=== PATIENT | female | born 1970 | race Caucasian/White ===

== ENCOUNTER 2016-11-23 12:58 | Emergency (ER) | payer OTHER ==
[~2016-11-23] VITALS: Ht 170.2 cm; Wt 81.6 kg
--- NOTE | 2016-11-23 12:58 | NUR ---
Patient BIBA and taken to bed 06.
[2016-11-23 13:10] VITALS: BP 142/86
--- NOTE | 2016-11-23 13:20 | NUR ---
Dr. Bello evaluating patient at bedside.
--- NOTE | 2016-11-23 13:25 | NUR ---
PATIENT PRESENTS TO ED WITH LEFT FACIAL BRUISING AND SWELLING.ERMD MADE AWARE; DENIES N/V/D; SKIN IS PINK/WARM/DRY; AAOX4 WITH EVEN AND STEADY GAIT; LUNGS CLEAR BL; HR EVEN AND REGULAR; PT DENIES ANY FEVER, CP, SOB, OR COUGH AT THIS TIME; PATIENT STATES PAIN OF 4/10 AT THIS TIME; VSS; PATIENT POSITIONED FOR COMFORT; HOB ELEVATED; BEDRAILS UP X2; BED DOWN. ER MD MADE AWARE OF PT STATUS.
--- NOTE | 2016-11-23 14:09 | NUR ---
Ruthie camarillo in [facility] - 11/23/16 at 1411 by PARAG Patient going to CT via wheelchair per tech.
--- NOTE | 2016-11-23 14:10 | NUR ---
AAO, COOPERATIVE PT TAKEN TO CT VIA WHEEL CHAIR BY LONDON MOULTON
--- NOTE | 2016-11-23 14:26 | NUR ---
Patient [facility].
[2016-11-23] MEDS ORDERED: POTASSIUM CHLORIDE 20% 40 MEQ/15 ML UDC PO ONE (14:35)
[2016-11-23 16:30] VITALS: BP 138/84
--- NOTE | 2016-11-23 16:30 | NUR ---
Patient discharged with v/s stable. Written and verbal after care instructions given and explained. Patient verbalized understanding. Wheel Chair Assisted with to car. All questions addressed prior to discharge. Advised to follow up with PMD.
== END 2016-11-23 16:30 | disposition home or self-care (01) ==
LOC: MED 13:40
DX: S00.83XA Contusion of other part of head, initial encounter (principal); S00.03XA Contusion of scalp, initial encounter; R55 Syncope and collapse; E87.6 Hypokalemia; X58.XXXA Exposure to other specified factors, initial encounter; Y93.89 Activity, other specified; Y92.89 Other specified places as the place of occurrence of the external cause; Y99.8 Other external cause status

== ENCOUNTER 2019-10-04 21:15 | Inpatient (IN) | payer OTHER ==
[~2019-10-04] VITALS: Ht 170.2 cm; Wt 84.8 kg
[2019-10-04 21:15] VITALS: BP 185/111
--- NOTE | 2019-10-04 21:15 | NUR ---
PT BIBA TO ED BED 09
[2019-10-04] MEDS ORDERED: NACL 0.9% 1,000 ML IV ONE ×2 (21:25→22:50)
[2019-10-04] MEDS ORDERED: ALBUTEROL SULFATE/IPRATROPIU 3 ML SOL IH ONE (21:25)
[2019-10-04] MEDS ORDERED: LORazepam 2 MG/ML VIAL IVP ONE (21:30)
--- NOTE | 2019-10-04 21:30 | NUR ---
PT BIBA TO ED FOR EVALUATION OF SEIZURE LIKE ACTIVITY. PER EMS; FAMILY STATED PT CONSUMED HEAVY ALCOHOL LAST NIGHT. PT HAD EPISODE OF SEIZURE LIKE ACTIVITY, EYE OPEN AND FIXED, SHAKING. BLOOD SUGAR 164 ON SCENE. ALSO COMBATIVE EPISODE ON SCENE DENIES PMH. PT AAO X3, GCS 14([id number]), ABLE TO ANSWER QUESTIONS WITH SHORT SENTENCES. ATTEMPTED TO FOLLOW COMMANDS. PUPILS PERRLA 3/3 BRISK. RESPIRATIONS EVEN AND UNLABORED, BL LUNG CLEAR. SKIN WARM/PINK/DRY, +PMSC. ABDOMEN SOFT, NON DISTENDED, ACTIVE BOWEL SOUND X4. C/O N/V. FOOD STAND MANAGER SR, BP ELEVATED. AT BEDSIDE EVALUATING PT. WILL CONTINUE TO MONITOR Addendum: 10/05/19 at 0105 by [facility] SEIZURE PAD APPLIED FOR SEIZURE PRECAUTION
--- NOTE | 2019-10-04 21:47 | NUR ---
UNABLE TO GIVE HHN TREATMENT, PATIENT WAS VOMITING. ADVISED .
[2019-10-04] MEDS ORDERED: ONDANSETRON 4 MG/2 ML VIAL IVP ONE (21:55)
[2019-10-04 21:59] LABS: BASOPHILS # (AUTO) 0.1 K/uL (0.00-0.22); BASOPHILS % (AUTO) 0.8 % (0.0-2.0); EOSINOPHILS # (AUTO) 0.1 K/uL (0-0.4); EOSINOPHILS % (AUTO) 1.2 % (0.0-4.0); HEMATOCRIT 44.7 % (36-48); HEMOGLOBIN 15.3 g/dL (12.0-16.0); LYMPHOCYTES # (AUTO) 1.1 K/uL (2.5-16.5); LYMPHOCYTES % (AUTO) 12.6 % (20.5-51.1); MEAN CORPUSCULAR HEMOGLOBIN 31 pg (27-31); MEAN CORPUSCULAR HGB CONC 34 g/dL (33-37); MEAN CORPUSCULAR VOLUME 90.7 fL (80-94); MONOCYTES # (AUTO) 0.6 K/uL (0.8-1.0); MONOCYTES % (AUTO) 6.8 % (1.7-9.3); NEUTROPHILS # (AUTO) 6.7 K/uL (1.8-7.7); NEUTROPHILS % (AUTO) 78.6 % (42.2-75.2); PLATELET COUNT (AUTO) 198 K/uL (140-450); RED BLOOD CELL COUNT(AUTO) 4.93 MIL/uL (4.20-5.40); WHITE BLOOD COUNT (AUTO) 8.5 K/uL (4.8-10.8)
--- NOTE | 2019-10-04 22:00 | NUR ---
PT DESATURATION O2 82% ON ROOM AIR, PLACED ON O2 2L/M VIA NC, O2 SAT 97%. PT REMAINS GCS 14. VSS, WILL CONTINUE TO MONITOR
[2019-10-04 22:35] LABS: ALBUMIN 4.7 g/dL (3.4-5.0); ANION GAP 20.2 (8-16); ASPARTATE AMINOTRANSFERASE 23 U/L (15-37); CARBON DIOXIDE 20.6 mmol/L (21-32); CHLORIDE 102 mmol/L (98-107); GFR ARICAN-AMERICAN 76 mL/min (>90); GLUCOSE 210 mg/dL (74-106); SALICYLATE 4.3 mg/dL (2.8-20.0); SODIUM SERUM 140 mmol/L (136-145); TOTAL BILIRUBIN 1.5 mg/dL (0.0-1.0); UREA NITROGEN, BLOOD 10 mg/dL (7-18)
[2019-10-04 22:37] LABS: ACETAMINOPHEN < 0.5 ug/ml (10-30); POTASSIUM 2.8 mmol/L (3.5-5.1)
[2019-10-04] MEDS ORDERED: KCL 20 MEQ/WATER INJ PREMIX 200 ML IV ONE (22:50)
[2019-10-04] MEDS ORDERED: POTASSIUM CHLORIDE 20% 40 MEQ/15 ML UDC PO ONE (22:50)
[2019-10-04] MEDS ORDERED: ceFAZolin 1,000 MG VIAL ONE (22:50)
[2019-10-04 23:04] LABS: CKMB RELATIVE INDEX 1.1 (0.0-2.5)
[2019-10-04 23:45] LABS: BARBITURATE, URINE NEG. ng/ml (NEG <=200); BENZODIAZEPINE, URINE NEG. ng/mL (NEG <=200); CANNABINOID, URINE POS. ng/mL (NEG <=50); COCAINE, URINE NEG. ng/mL (NEG <=300); OPIATE, URINE NEG. ng/mL (NEG <=2000); PHENCYCLIDINE SCREEN,URINE NEG. ng/mL (NEG <=25)
--- NOTE | 2019-10-05 | NUR ---
PT GCS 15, ABLE TO MAKE NEEDS KNOWN AND FOLLOW COMMANDS. AT BEDSIDE. RESPIRATIONS EVEN AND UNLABORED. VSS, DENIES PAIN AND DISCOMFORT AT THIS TIME. WILL CONTINUE TO MONITOR
[2019-10-05] MEDS ORDERED: ALBUTEROL SULFATE/IPRATROPIU 3 ML SOL IH ONE (00:02)
--- NOTE | 2019-10-05 01:15 | NUR ---
Patient will be admitted to care of . Admited to TELEMETRY. Will go to room ICU BED 8. Belongings list completed. Report to MILLIE VEGA.
[2019-10-05 01:30] VITALS: BP 149/81
--- NOTE | 2019-10-05 01:30 | NUR ---
REPORT RECEIVED FROM ED NURSE AT BEDSIDE. PT IN STABLE CONDITION. AAOX4. INTRODUCED SELF TO PT. AT BEDSIDE. NO COMPLAINTS OF PAIN. NO SOB. ON 2L O2 VIA NC. AFEBRILE@98.3. PT IS AMBULATORY. CXR SHOWS POSSIBLE PNA IN THE BASES. CT HEAD WAS NEGATIVE. MRSA SWAB COLLECTED. IV SITE L AC 18G RUNNING POTASSIUM@25ML/HR PATENT AND INTACT. SKIN WARM, DRY, AND INTACT WITH NO OPEN WOUNDS. BED LOCKED IN LOW POSITION. CALL MÉNDEZ WITHIN REACH. SAFETY PRECAUTION IN PLACE. ALL NEEDS MET AT THIS TIME.
[2019-10-05] MEDS ORDERED: ACETAMINOPHEN 325 MG TAB PO PRN (01:35)
[2019-10-05] MEDS ORDERED: ZOLPIDEM 5 MG TAB PO PRN (01:35)
[2019-10-05] MEDS ORDERED: LORazepam 1 MG TAB PO PRN (01:35)
[2019-10-05] MEDS ORDERED: PROMETHAZINE 25 MG/ML VIAL IVP PRN (01:35)
[2019-10-05] MEDS ORDERED: MORPHINE SULFATE 2 MG/ML SYR IVP PRN ×2 (01:35)
[2019-10-05] MEDS ORDERED: LEVOFLOXACIN 500 MG/D5W PREMIX 100 ML IV SCH (02:00)
--- NOTE | 2019-10-05 02:16 | NUR ---
MARI MERCADO AND RUNNING. PT TOLERATING WELL.
[2019-10-05 04:00] VITALS: BP 145/81
[2019-10-05] MEDS: SODIUM CHLORIDE FLUSH 10 ML SYR IVF SCH ×2 (04:24→13:51)
--- NOTE | 2019-10-05 04:24 | NUR ---
IV SITE FLUSHED WELL WITH NS.
--- NOTE | 2019-10-05 05:40 | NUR ---
NOTIFIED PATIENT THAT SHE WILL BE GOING TO [facility]. PT WOKE UP AND IS ALERT. NO S/S OF DISTRESS NOTED. WILL CONTINUE TO MONITOR.
--- NOTE | 2019-10-05 07:10 | NUR ---
RECEIVED BEDSIDE REPORT FROM WAREHOUSE ANALYST NURSE, PT IS ASLEEP, NO S/S OF ACUTE DISTRESS NOTED, PT IS ON ROOM AIR, SKIN INTACT, IV SITE R AC 18 G SALINE LOCKED. PT IS AMBULATORY AND ABLE TO MAKE NEEDS KNOWN. CALL LIGHT IS WITHIN REACH. WILL CONTINUE TO MONITOR.
[2019-10-05 08:00] VITALS: BP 138/83
[2019-10-05 08:16] LABS: APPEARANCE,URINE CLEAR (CLEAR); BILIRUBIN,URINE NEGATIVE (NEGATIVE); BLOOD, URINE TRACE-I (NEGATIVE); COLOR,URINE YELLOW (YELLOW); LEUKOCYTE ESTERASE ,URINE NEGATIVE (NEGATIVE); NITRITE, URINE NEGATIVE (NEGATIVE); UGLUCOSE NEGATIVE (NEGATIVE)
--- NOTE | 2019-10-05 09:04 | NUR ---
PATIENT HAS BEEN SCREENED AND CATEGORIZED MODERATE NUTRITION RISK. PATIENT WILL BE SEEN WITHIN 3-5 DAYS OF ADMISSION. 10/07/19-10/09/[address]
[2019-10-05 09:09] LABS: WBC,URINE 0-5 /HPF (0-5)
--- NOTE | 2019-10-05 10:13 | NUR ---
PT VISITING WITH A FRIEND AT THIS TIME, NO DISTRESS OR C/O PAIN.
--- NOTE | 2019-10-05 11:12 | NUR ---
CALLED LAB TO FOLLOW UP ON PT'S BMP DRAW THIS MORNING. MARILOU SAID THAT JOINT FILLER IS COMING OVER RIGHT NOW TO DRAW PT'S BMP AND MAGNESIUM ORDERED FOR THIS AM. Addendum: 10/05/19 at 1127 by Sagrario Prince RN PT HAVING BLOOD DRAWN AT THIS TIME.
[2019-10-05 12:00] VITALS: BP 142/89
[2019-10-05 12:36] LABS: ANION GAP 16.3 (8-16); CARBON DIOXIDE 23.3 mmol/L (21-32); CREATININE 0.7 mg/dL (0.6-1.3); POTASSIUM 3.6 mmol/L (3.5-5.1)
--- NOTE | 2019-10-05 12:53 | NUR ---
Car Wash Manager Note: Basic Screen: Yes High Risk DC Screen [place]: UMBERTO Evangelista Relationship: Pre-Admission Living Arrangements: Lives with Other Prior ADL Independent Current Home Health Name/Tel: N/A Current DME/02 Name/Tel: N/A Current Hospice Name/Tel: N/A Current Dialysis Name/Tel: N/A Healthcare Decision Maker: Patient Advance Directive No - REFUSED Information Taught: Advance Directive Person Taught: Patient Teaching Tools: Verbal Factors Affecting Learning: None Participation Level: Refused Evaluation: Verbalizes Understanding Needs Additional Education: No Discipline: Case Mgt/Social Svcs Tentative Discharge Plan/Destination: No Needs Identified Will require assistance post discharge: No Referred to Typing Bookkeeper: No Tentative Discharge Plan Summary: Patient is a 49-year-old female admitted for pneumonia. Patient has no significant PMHX. Patient was admitted from home. SW met with patient at bedside to verify demographics. Patient reports no history of mental health and no substance abuse history. SW provided education on advanced directive, but patient refused. Patient's tentative discharge plan is to return home. No further needs identified. Signature: LAUREL Khan Date: Oct 05, 2019 Time: 12:52
--- NOTE | 2019-10-05 13:28 | NUR ---
PT VISITING WITH HER FAMILY AT BEDSIDE. NO S/S OF DISTRESS OR PAIN. VS ARE STABLE.
--- NOTE | 2019-10-05 15:13 | NUR ---
DC PLANNIN YRS OLD MALE PATIENT WAS ADMITTED FROM HOME WITH A DX OF PNEUMONIA, NEW ONSET OF SEIZURE, PT HAS NO MEDICAL HISTORY. CXR SHOWED PNEUMONIA , CT HEAD (-) , EKG NORMAL SINUS RHYTHM . ADMINISTERED IVF AND LEVAQUIN IV , INITIATE SEIZURE PRECAUTION AND RT PROTOCOL . DC PLAN TO GO HOME WHEN STABLE CM TO FOLLOW.
[2019-10-05] MEDS ORDERED: LEVO750T2 PO (15:25)
[2019-10-05] MEDS ORDERED: POTASSIUM CHLORIDE 10 MEQ TABER PO SCH (16:00)
[2019-10-05] MEDS ORDERED: MAGNESIUM OXIDE 400 MG TAB PO SCH (16:00)
--- NOTE | 2019-10-05 16:35 | NUR ---
PT HAS DC'D PER DR FORD'S ORDER. PT WAS GIVEN DC INSTRUCTIONS AND PRESCRIPTION, SHE VERBALIZED UNDERSTANDING OF DC TEACHING. IV SITE AND WRIST BANDS REMOVED. PT LEFT IN STABLE CONDITION WITH ALL HER BELONGINGS.
== END 2019-10-05 16:30 | disposition home or self-care (01) | DRG 139 ==
LOC: MED 21:15 → MIC 10-05 00:55 → MTU 10-05 06:30
PROVIDERS: ADMIT Internal Medicine Pulmonary Disease; ATTEND Internal Medicine Pulmonary Disease
DX: J18.9 Pneumonia, unspecified organism (principal); J96.01 Acute respiratory failure with hypoxia; E86.9 Volume depletion, unspecified; N18.3 Chronic kidney disease, stage 3 (moderate); F12.10 Cannabis abuse, uncomplicated; F15.10 Other stimulant abuse, uncomplicated; G40.909 Epilepsy, unspecified, not intractable, without status epilepticus; E87.6 Hypokalemia; Z83.3 Family history of diabetes mellitus
CPT/HCPCS: 36415; 36600; 70450; 71045; 80048; 80053; 80305; 81001; 81025; 82550; 82553; 82803; 83605; 83735; 84484; 85025; 87040; 87081; 93005; 94640; 96365; 96375; 99291; G0480; G0482; J0690; J1956; J2060; J2405; J3480; J7030; J7620; Q0092

== ENCOUNTER 2019-11-09 20:29 | Emergency (ER) | payer OTHER ==
[~2019-11-09] VITALS: Ht 167.6 cm; Wt 84.8 kg
[~2019-11-09 20:29] MED LIST: LEVO750T2 PO
[2019-11-09 20:35] VITALS: BP 125/76
--- NOTE | 2019-11-09 20:35 | NUR ---
to bed # 08 ambulatory
--- NOTE | 2019-11-09 20:50 | NUR ---
Dr. Moore examining patient.
--- NOTE | 2019-11-09 20:50 | NUR ---
49 Y/O F C/O COUGH. PT CAME FROM URGENT CARE, URGENT CARE TOLD HER TO GO TO ER WITH C/O WHEEZING AND REQUEST CHEST X-RAY. PT LUNG SOUNDS WHEEZING THROUGHOUT. OXYGEN 99% ROOM AIR. PT POSITIONED HIGH FOWLERS. PT WAS IN THE ED X1 MONTH AGO FOR PNEUMONIA. AT BEDSIDE. ELISEO
[2019-11-09] MEDS ORDERED: ALBUTEROL SULFATE/IPRATROPIU 3 ML SOL IH ONE (20:55)
[2019-11-09] MEDS ORDERED: predniSONE 20 MG TAB PO ONE (20:55)
--- NOTE | 2019-11-09 21:01 | NUR ---
X-Ray at bedside.
--- NOTE | 2019-11-09 21:01 | NUR ---
Respiratory Therapist at bedside for respiratory intervention.
--- NOTE | 2019-11-09 21:02 | NUR ---
X-RAY TECH AT BEDSIDE PERFORMING ORDERED TEST.
--- NOTE | 2019-11-09 21:02 | NUR ---
RT AT BEDSIDE ADMINISTERING ORDERED BREATHING TREATMENT.
--- NOTE | 2019-11-09 21:10 | NUR ---
PULLED 1 20 MG TABLET OF PREDNISONE FROM [employer]. NEEDED 60 MG, 3 TABLETS. PULLED REMAINING 2 TABLETS FROM [employer], TOTAL OF 60MG GIVEN.
[2019-11-09 21:27] VITALS: BP 125/76
--- NOTE | 2019-11-09 21:27 | NUR ---
Patient discharged with v/s stable. Written and verbal after care instructions given and explained. Patient alert, oriented and verbalized understanding of instructions. Ambulatory with steady gait. All questions addressed prior to discharge. ID band removed. Patient advised to follow up with PMD. Rx of ALBUTEROL, PREDNISONE, AND AZITHROMYCIN given. Patient educated on indication of medication including possible reaction and side effects. Opportunity to ask questions provided and answered.
== END 2019-11-09 21:27 | disposition home or self-care (01) ==
LOC: MED 20:29
DX: J20.9 Acute bronchitis, unspecified (principal); F17.200 Nicotine dependence, unspecified, uncomplicated; F12.90 Cannabis use, unspecified, uncomplicated; Z87.442 Personal history of urinary calculi; Z98.890 Other specified postprocedural states; Z79.899 Other long term (current) drug therapy
CPT/HCPCS: 71045; 94640; 99283; J7512; J7620; Q0092

== ENCOUNTER 2020-06-20 15:48 | Emergency (ER) | payer OTHER ==
[~2020-06-20] VITALS: Ht 170.2 cm; Wt 89.4 kg
[2020-06-20 15:55] VITALS: BP 139/85
[2020-06-20] MEDS ORDERED: DEXAMETHASONE 10 MG/ML VIAL IM ONE (16:15)
[2020-06-20] MEDS ORDERED: KETOROLAC 30 MG/ML VIAL IM ONE (16:15)
[2020-06-20 17:53] VITALS: BP 139/85
== END 2020-06-20 17:51 | disposition home or self-care (01) ==
LOC: MED 15:48
DX: M54.5 Low back pain (principal); M43.00 Spondylolysis, site unspecified; M43.10 Spondylolisthesis, site unspecified; Z79.899 Other long term (current) drug therapy
CPT/HCPCS: 72100; 81002; 81025; 96372; 99284; J1100; J1885

== ENCOUNTER 2020-09-08 14:02 | Emergency (ER) | payer OTHER ==
[~2020-09-08] VITALS: Ht 170.2 cm; Wt 86.2 kg
--- NOTE | 2020-09-08 14:04 | NUR ---
DR. WALLACE AT BEDSIDE EVALUTING PATIENT AT THIS TIME.
--- NOTE | 2020-09-08 14:04 | NUR ---
PATIENT BIBA TO ER BED 7.
[2020-09-08] MEDS ORDERED: NACL 0.9% 1,000 ML IV ONE (14:10)
[2020-09-08] MEDS ORDERED: LORazepam 2 MG/ML VIAL IVP ONE (14:10)
[2020-09-08 14:11] VITALS: BP 156/100
--- NOTE | 2020-09-08 14:14 | NUR ---
50 YEAR OLD FEMALE BIBA FOR WITNESSED SEIZURE X COUPLE MINS BY FAMILY. PER EMS FAMILY STATES THAT PT WAS LAYING DOWN AND DENIES FALL/TRAUMA. PER EMS THIS WAS PT SECOND SEIZURE. PT CONFUSED, COOPERATIVE WITH STAFF. PT ALERT AND AWAKE, BREATHING EVEN AND UNLABORED, SKIN DIAPHORETIC. BED IN LOWEST POSITION, LOCKED, BED RAIL UPX2. SEIZURE PRECAUTIONS IN PLACE. PT PLACED ON MONITOR, VS STABLE. ERMD AWARE OF PT STATUS. PMH - SEIZURE ALLERGIES - NKA
[2020-09-08 14:30] LABS: BASOPHILS # (AUTO) 0.2 K/uL (0.00-0.22); BASOPHILS % (AUTO) 1.9 % (0.0-2.0); EOSINOPHILS # (AUTO) 0.7 K/uL (0-0.4); EOSINOPHILS % (AUTO) 8.5 % (0.0-4.0); HEMATOCRIT 41.9 % (36-48); HEMOGLOBIN 14.3 g/dL (12.0-16.0); LYMPHOCYTES # (AUTO) 2.5 K/uL (2.5-16.5); LYMPHOCYTES % (AUTO) 30.3 % (20.5-51.1); MEAN CORPUSCULAR HEMOGLOBIN 30 pg (27-31); MEAN CORPUSCULAR HGB CONC 34 g/dL (33-37); MEAN CORPUSCULAR VOLUME 88.7 fL (80-94); MONOCYTES # (AUTO) 0.5 K/uL (0.8-1.0); MONOCYTES % (AUTO) 6.1 % (1.7-9.3); NEUTROPHILS # (AUTO) 4.5 K/uL (1.8-7.7); NEUTROPHILS % (AUTO) 53.2 % (42.2-75.2); PLATELET COUNT (AUTO) 225 K/uL (140-450); RED BLOOD CELL COUNT(AUTO) 4.72 MIL/uL (4.20-5.40); RED CELL DISTRIBUTION WIDTH 13.3 % (11.6-13.7); WHITE BLOOD COUNT (AUTO) 8.4 K/uL (4.8-10.8)
[2020-09-08 14:50] LABS: PROTHROMBIN TIME 9.9 secs (10.8-13.4)
[2020-09-08 14:59] LABS: BARBITURATE, URINE NEGATIVE ng/ml (NEG <=200); BENZODIAZEPINE, URINE NEGATIVE ng/mL (NEG <=200); CANNABINOID, URINE POSITIVE ng/mL (NEG <=50); COCAINE, URINE NEGATIVE ng/mL (NEG <=300); OPIATE, URINE NEGATIVE ng/mL (NEG <=2000); PHENCYCLIDINE SCREEN,URINE NEGATIVE ng/mL (NEG <=25)
[2020-09-08 15:02] LABS: ALBUMIN 4.3 g/dL (3.4-5.0); ANION GAP 22.1 (8-16); ASPARTATE AMINOTRANSFERASE 14 U/L (15-37); CARBON DIOXIDE 20.7 mmol/L (21-32); CHLORIDE 103 mmol/L (98-107); CREATININE 1.1 mg/dL (0.6-1.3); GFR ARICAN-AMERICAN 68 mL/min (>90); GLUCOSE 168 mg/dL (74-106); SALICYLATE 5.6 mg/dL (2.8-20.0); SODIUM SERUM 143 mmol/L (136-145); TOTAL BILIRUBIN 0.7 mg/dL (0.0-1.0); UREA NITROGEN, BLOOD 9 mg/dL (7-18)
[2020-09-08 15:10] LABS: POTASSIUM 2.8 mmol/L (3.5-5.1)
[2020-09-08] MEDS ORDERED: KCL 20 MEQ/WATER INJ PREMIX 200 ML IV ONE (15:15)
[2020-09-08 15:25] LABS: ACETAMINOPHEN < 0.5 ug/ml (10-30)
[2020-09-08] MEDS ORDERED: POTASSIUM CHLORIDE 20% 40 MEQ/15 ML UDC PO ONE (16:35)
[2020-09-08] MEDS ORDERED: levETIRAcetam 500 MG TAB PO ONE (16:35)
--- NOTE | 2020-09-08 17:43 | NUR ---
PT ALERT AND AWAKE, BREATHING EVEN AND UNLABORED. NO DISTRESS NOTED.
[2020-09-08] MEDS ORDERED: KETOROLAC 30 MG/ML VIAL IVP ONE (18:00)
--- NOTE | 2020-09-08 18:36 | NUR ---
PT AMBULATED TO BATHROOM WITH EVEN AND STEADY GAIT
[2020-09-08 18:45] VITALS: BP 148/82
--- NOTE | 2020-09-08 18:45 | NUR ---
Patient discharged with v/s stable. Written and verbal after care instructions about hypokalemia, marijuana abuse, seizure given and explained. Patient alert, oriented and verbalized understanding of instructions. Ambulatory with steady gait. All questions addressed prior to discharge. ID band removed. Patient advised to follow up with PMD. Rx of keppra, potassium given. Patient educated on indication of medication including possible reaction and side effects. Opportunity to ask questions provided and answered.
== END 2020-09-08 18:45 | disposition home or self-care (01) ==
LOC: MED 14:02
DX: R41.82 Altered mental status, unspecified (principal); R56.9 Unspecified convulsions; Z79.899 Other long term (current) drug therapy
CPT/HCPCS: 36415; 70450; 80053; 80305; 81002; 81025; 83735; 84703; 85025; 85610; 96361; 96365; 96375; 99284; G0480; G0482; J1885; J2060; J3480; J7030

== ENCOUNTER 2021-01-14 13:22 | Emergency (ER) | payer OTHER ==
[~2021-01-14] VITALS: Ht 170.2 cm; Wt 86.2 kg
[2021-01-14 13:27] VITALS: BP 179/99
[2021-01-14] MEDS ORDERED: NACL 0.9% 1,000 ML IV ONE (13:35)
[2021-01-14] MEDS ORDERED: levETIRAcetam 1,000 MG in NACL 0.9% 100 ML IV ONE (13:35)
--- NOTE | 2021-01-14 13:45 | NUR ---
50 y/o F BIBA from home wt c/c witnessed tonic/clonic seizure. EMS states seizure lasted approximately 3 minutes. Pt states she was taken off seizure medication by primary care. Patient states she woke up this morning and was "not feeling good." Patient reports upset stomach, headache and nausea/vomiting. Patient states she was laying down and felt shakey/diaphoretic. Pt states she does not remember the incident. Pt placed onto seizure precautions; Bed locked in lowest position side rails x 2 call light in reach. PMH: Seizures Meds: Denies NKA
--- NOTE | 2021-01-14 13:55 | NUR ---
EMT at bedside for EKG
--- NOTE | 2021-01-14 13:55 | NUR ---
Lab at bedside for blood sample
[2021-01-14 14:02] LABS: BASOPHILS % (AUTO) 0.2 % (0.0-2.0); EOSINOPHILS # (AUTO) 0.3 K/uL (0-0.4); HEMATOCRIT 42.9 % (36-48); HEMOGLOBIN 14.6 g/dL (12.0-16.0); LYMPHOCYTES # (AUTO) 0.4 K/uL (2.5-16.5); MEAN CORPUSCULAR HEMOGLOBIN 30 pg (27-31); MEAN CORPUSCULAR HGB CONC 34 g/dL (33-37); MEAN CORPUSCULAR VOLUME 88.2 fL (80-94); MONOCYTES # (AUTO) 0.2 K/uL (0.8-1.0); MONOCYTES % (AUTO) 2.6 % (1.7-9.3); NEUTROPHILS # (AUTO) 8.6 K/uL (1.8-7.7); NEUTROPHILS % (AUTO) 90.2 % (42.2-75.2); PLATELET COUNT (AUTO) 155 K/uL (140-450); RED BLOOD CELL COUNT(AUTO) 4.86 MIL/uL (4.20-5.40); RED CELL DISTRIBUTION WIDTH 13.1 % (11.6-13.7); WHITE BLOOD COUNT (AUTO) 9.5 K/uL (4.8-10.8)
--- NOTE | 2021-01-14 14:12 | NUR ---
machining technician transported patient via gurney to CT.
--- NOTE | 2021-01-14 14:25 | NUR ---
Patient returned from CT and placed back onto infusion pump, compliance monitor.
[2021-01-14 14:27] LABS: ALBUMIN 4.3 g/dL (3.4-5.0); ANION GAP 18.5 (8-16); CARBON DIOXIDE 19.8 mmol/L (21-32); CREATININE 1.1 mg/dL (0.6-1.3); POTASSIUM 3.3 mmol/L (3.5-5.1); TOTAL BILIRUBIN 1.2 mg/dL (0.0-1.0)
[2021-01-14] MEDS ORDERED: ACETAMINOPHEN EXTRA STRENGTH 500 MG TAB PO ONE (14:45)
[2021-01-14] MEDS ORDERED: METOCLOPRAMIDE 10 MG/2 ML INJ VIAL IVP ONE (14:45)
[2021-01-14] MEDS ORDERED: POTASSIUM CHLORIDE 10 MEQ TABER PO SCH (15:30)
[2021-01-14] MEDS ORDERED: KEP500 PO (15:32)
--- NOTE | 2021-01-14 15:35 | NUR ---
Patient ambulate to restroom with steady/even gait.
--- NOTE | 2021-01-14 15:40 | NUR ---
Patient ambulated with steady/even gait back to bed. automation qa lead back in place. Bed locked in lowest position, side rails x 1.
[2021-01-14 16:05] LABS: CARBON DIOXIDE 23.3 mmol/L (21-32); CREATININE 0.9 mg/dL (0.6-1.3); POTASSIUM 3.3 mmol/L (3.5-5.1)
--- NOTE | 2021-01-14 16:53 | NUR ---
Azeem () contacted and notified to pick patient up in lobby.
[2021-01-14 17:00] VITALS: BP 143/77
--- NOTE | 2021-01-14 17:00 | NUR ---
Patient discharged with v/s stable. Written and verbal after care instructions given and explained. Patient alert, oriented and verbalized understanding of instructions. Wheel Chair Assisted with to car. All questions addressed prior to discharge. ID band removed. Patient advised to follow up with PMD. Rx of Levetiracetam given. Patient educated on indication of medication including possible reaction and side effects. Opportunity to ask questions provided and answered.
== END 2021-01-14 17:00 | disposition home or self-care (01) ==
LOC: MED 13:22
DX: R56.9 Unspecified convulsions (principal); Z79.899 Other long term (current) drug therapy
CPT/HCPCS: 36415; 70450; 71045; 80048; 80053; 83690; 84484; 84702; 85025; 93005; 96365; 96375; 99285; J1953; J2765; J7030

== ENCOUNTER 2021-09-11 10:46 | Emergency (ER) | payer OTHER ==
[~2021-09-11] VITALS: Ht 167.6 cm; Wt 70.8 kg
[~2021-09-11 10:46] MED LIST changes: +KEP500 PO
--- NOTE | 2021-09-11 10:46 | NUR ---
ULICES POOLE VIA GURNEY TO BED 03.
[2021-09-11 10:54] VITALS: BP 152/55
--- NOTE | 2021-09-11 11:00 | NUR ---
51 Y/O FEMALE BIBA FROM HOME C/O SEIZURE AT HOME. PER EMS PT WAS WEANED OFF KEPPRA A YEAR AGO BY PCP AND HAS HAD 3 SEIZURES IN THE LAST YEAR. DENIES TRAUMA/INJURY. DENIES N/V, DENIES FEVER/CHILLS, DENIES PAIN, DENIES SOB. PMH: EPILEPSY, ANXIETY NKA
--- NOTE | 2021-09-11 11:20 | NUR ---
RECIEVED REPORT FROM GARY LEE FOR TRANSFER OF CARE
[2021-09-11] MEDS ORDERED: NACL 0.9% 1,000 ML IV ONE (11:25)
--- NOTE | 2021-09-11 11:39 | NUR ---
PT PROVIDED WITH WARM BLANKET BEDSIDE
[2021-09-11] MEDS ORDERED: IBUPROFEN 600 MG TAB PO ONE (12:00)
--- NOTE | 2021-09-11 12:03 | NUR ---
PROGRAMMER ANALYST AT PT BEDSIDE.
--- NOTE | 2021-09-11 12:04 | NUR ---
XRAY BEDSIDE WITH PATIENT
--- NOTE | 2021-09-11 12:04 | NUR ---
PT AMBULATED TO RESTROOM, GAIT STEADY
[2021-09-11 12:05] LABS: BASOPHILS # (AUTO) 0.1 K/uL (0.00-0.22); BASOPHILS % (AUTO) 0.9 % (0.0-2.0); EOSINOPHILS # (AUTO) 0.2 K/uL (0-0.4); EOSINOPHILS % (AUTO) 2.6 % (0.0-4.0); HEMATOCRIT 41.3 % (36-48); LYMPHOCYTES # (AUTO) 0.8 K/uL (2.5-16.5); LYMPHOCYTES % (AUTO) 11.3 % (20.5-51.1); MEAN CORPUSCULAR HEMOGLOBIN 30 pg (27-31); MEAN CORPUSCULAR HGB CONC 34 g/dL (33-37); MEAN CORPUSCULAR VOLUME 87.6 fL (80-94); MONOCYTES # (AUTO) 0.4 K/uL (0.8-1.0); MONOCYTES % (AUTO) 5.8 % (1.7-9.3); NEUTROPHILS # (AUTO) 5.9 K/uL (1.8-7.7); NEUTROPHILS % (AUTO) 79.4 % (42.2-75.2); PLATELET COUNT (AUTO) 196 K/uL (140-450); RED BLOOD CELL COUNT(AUTO) 4.72 MIL/uL (4.20-5.40); RED CELL DISTRIBUTION WIDTH 13.1 % (11.6-13.7); WHITE BLOOD COUNT (AUTO) 7.5 K/uL (4.8-10.8)
[2021-09-11] MEDS ORDERED: ONDANSETRON 4 MG/2 ML VIAL IVP ONE (12:30)
[2021-09-11 12:34] LABS: ANION GAP 14.3 (8-16); CARBON DIOXIDE 25.9 mmol/L (21-32); POTASSIUM 4.2 mmol/L (3.5-5.1)
--- NOTE | 2021-09-11 13:35 | NUR ---
Patient appears to be resting comfortably in bed. Vital Signs within normal limits. Respirations even and unlabored.
[2021-09-11 14:21] VITALS: BP 157/99
== END 2021-09-11 14:20 | disposition home or self-care (01) ==
LOC: MED 10:46
DX: R56.9 Unspecified convulsions (principal); R19.7 Diarrhea, unspecified; R42 Dizziness and giddiness; G40.909 Epilepsy, unspecified, not intractable, without status epilepticus; Z79.899 Other long term (current) drug therapy
CPT/HCPCS: 36415; 71045; 80048; 84484; 85025; 93005; 96361; 96374; 99285; J2405; J7030; Q0092

== ENCOUNTER 2022-05-18 13:14 | Emergency (ER) | payer OTHER ==
[~2022-05-18] VITALS: Ht 162.6 cm; Wt 83.9 kg
[2022-05-18 13:35] VITALS: BP 103/63
--- NOTE | 2022-05-18 13:38 | NUR ---
51 Y/O FEMALE TESTED POSITIVE FOR COVID 19 YESTERDAY, WAS ASKED BY HER PRIMARY TO GET HER OXYGEN LEVEL TESTED, DIDNT KNOW WHERE TO BUY A PULSE OXOMETER AND WENT TO THE ED. DENIES ANY OTHER S/S OTHER THAN LOSS OF TASTE NKA PMH: SEIZURES RX: KEPPRA (COMPLIANT)
[2022-05-18] MEDS ORDERED: PROM118S5 PO (14:06)
[2022-05-18] MEDS ORDERED: NIRM1TAB PO (14:06)
--- NOTE | 2022-05-18 14:22 | NUR ---
Patient discharged with v/s stable. Written and verbal after care instructions given. Patient alert, oriented and verbalized understanding of instructions. Ambulatory with steady gait. All questions addressed prior to discharge. ID band removed. Patient advised to follow up with PMD. Rx of Paxlovid and Promethazine-DM given. Opportunity to ask questions provided and answered.
== END 2022-05-18 14:22 | disposition home or self-care (01) ==
LOC: MED 13:14
DX: U07.1 COVID-19 (principal)
CPT/HCPCS: 99283

== ENCOUNTER 2023-07-11 01:14 | Emergency (ER) | payer OTHER ==
[~2023-07-11] VITALS: Ht 167.6 cm; Wt 79.4 kg
[~2023-07-11 01:14] MED LIST changes: +NIRM1TAB PO; +PROM118S5 PO
[2023-07-11 01:18] VITALS: BP 150/110; PULSE 86; RESP 16; TEMP 97.9; O2SAT 99
[2023-07-11 02:30] VITALS: BP 140/71; PULSE 74; RESP 16; TEMP 97.9; O2SAT 99
== END 2023-07-11 02:30 | disposition home or self-care (01) ==
LOC: MED 01:14
DX: H72.91 Unspecified perforation of tympanic membrane, right ear (principal); I10 Essential (primary) hypertension; Z79.899 Other long term (current) drug therapy; Y04.2XXA Assault by strike against or bumped into by another person, initial encounter; Y93.89 Activity, other specified; Y92.89 Other specified places as the place of occurrence of the external cause; Y99.8 Other external cause status
CPT/HCPCS: 99281

== ENCOUNTER 2023-09-24 10:38 | Emergency (ER) | payer OTHER ==
[~2023-09-24] VITALS: Ht 167.6 cm; Wt 79.4 kg
[2023-09-24 11:29] VITALS: BP 131/78; PULSE 62; RESP 18; TEMP 98.2; O2SAT 96
[2023-09-24] MEDS ORDERED: NIRM1TAB PO (12:02)
[2023-09-24 12:19] VITALS: BP 131/78; PULSE 62; RESP 18; TEMP 98.2; O2SAT 96
== END 2023-09-24 12:19 | disposition home or self-care (01) ==
LOC: MED 10:38
DX: U07.1 COVID-19 (principal); I10 Essential (primary) hypertension; Z79.899 Other long term (current) drug therapy
CPT/HCPCS: 99283

== ENCOUNTER 2024-06-17 07:59 | Emergency (ER) | payer OTHER ==
[~2024-06-17] VITALS: Ht 167.6 cm; Wt 79.8 kg
[2024-06-17 08:35] VITALS: BP 165/106; PULSE 54; RESP 20; TEMP 97.4; O2SAT 100
[2024-06-17] MEDS: IBUPROFEN 600 MG TAB PO ONE (09:38)
[2024-06-17 10:13] VITALS: BP 165/106; PULSE 54; RESP 20; TEMP 97.4; O2SAT 100
== END 2024-06-17 10:13 | disposition home or self-care (01) ==
LOC: MED 07:59
DX: S52.122A Displaced fracture of head of left radius, initial encounter for closed fracture (principal); I10 Essential (primary) hypertension; Z79.899 Other long term (current) drug therapy; W01.0XXA Fall on same level from slipping, tripping and stumbling without subsequent striking against object, initial encounter; Y92.512 Supermarket, store or market as the place of occurrence of the external cause; Y92.89 Other specified places as the place of occurrence of the external cause; Y99.8 Other external cause status
CPT/HCPCS: 29105; 73080; 73562; 99284